=== PATIENT | female | born 1955 | race Two or more races ===

== ENCOUNTER 2020-05-12 06:13 | Day surgery (SDC) | payer OTHER ==
[~2020-05-12 06:13] MED LIST: HEMAPLEX PO; SYNTHROID75 MCG PO
[2020-05-12] MEDS ORDERED: ULTRACET PO (10:14)
[2020-05-12] MEDS ORDERED: MACROBID 100 M100 MG PO (10:14)
== END 2020-05-12 15:45 | disposition home or self-care (01) ==
LOC: CIR.AMB 06:13
PROVIDERS: ATTEND Obstetrics & Gynecology Gynecology
DX: N81.3 Complete uterovaginal prolapse (principal); Z20.828 Contact with and (suspected) exposure to other viral communicable diseases